=== PATIENT | male | born 2000 ===

== ENCOUNTER 2024-11-09 21:21 | Emergency (ER) | payer BC, MEDICAID ==
[~2024-11-09] VITALS: Ht 172.7 cm; Wt 78.2 kg
[2024-11-09 21:37] VITALS: BP 124/52; PULSE 80; RESP 15; O2SAT 96
[2024-11-09] MEDS ORDERED: ALBU8HFA INH (22:28)
[2024-11-09] MEDS ORDERED: PRED50TA PO (22:28)
[2024-11-09 22:52] VITALS: TEMP 98.2
== END 2024-11-09 22:54 | disposition home or self-care (01) ==
LOC: ER 21:22
DX: J22 Unspecified acute lower respiratory infection (principal)
CPT/HCPCS: 99283